=== PATIENT | male | born 1985 | race Two or more races ===

== ENCOUNTER 2021-01-17 12:35 | Emergency (ER) | payer SELFPAY ==
[~2021-01-17] VITALS: Ht 175.3 cm; Wt 110.0 kg
[~2021-01-17 12:35] MED LIST: CEPH500C PO; HYDR-2761 PO
[2021-01-17 13:13] VITALS: BP 153/101
[2021-01-17] MEDS ORDERED: NAPR-514 PO (14:02)
[2021-01-17] MEDS ORDERED: CLIN-94 PO (14:02)
--- NOTE | 2021-01-17 14:02 | PHYS DOC ---
Past Medical History Past Surgical History: No Surgical History Smoking Status: Never Smoker General Adult EDM: Chief Complaint: DENTAL PROBLEM HPI: HPI: Patient is a 35 year old male patient presented today complaining of 7 out of 10 left upper gum dental pain, symptoms began yesterday. Also complaining of left facial swelling. Patient denies any fever or trismus. He states he is currently at [facility] for drug rehab. Patient describes the pain as sharp and intermittent worse on eating certain foods. Review of Systems: Review of Systems: Constitutional: Denies fever or chills. [] HENT: Reports left upper gum dental pain denies nasal congestion or sore throat. [] Musculoskeletal: Denies back pain or joint pain. [] Integument: Denies rash. [] Neurologic: Denies headache, focal weakness or sensory changes. [] Psychiatric: Denies depression or anxiety. [] Heart Score: C/O Chest Pain: N/A Risk Factors: Risk Factors: DM, Current or recent (<one month) smoker, HTN, HLP, family history of CAD, obesity. Risk Scores: Score 0 - 3: 2.5% MACE over next 6 weeks - Discharge Home Score 4 - 6: 20.3% MACE over next 6 weeks - Admit for Clinical Observation Score 7 - 10: 72.7% MACE over next 6 weeks - Early Invasive Strategies Allergies: Allergies: Allergies Coded Allergies Type Severity Reaction Last Updated Verified Penicillins Allergy Intermediate 01/17/21 Yes Physical Exam: PE: Constitutional: Well developed, well nourished, no acute distress, non-toxic appearance. [] HENT: Normocephalic, atraumatic, bilateral external ears normal, oropharynx moist, no oral exudates, nose normal. [] Left upper cheek noted for slight swelling, very poor dentition, left upper gum with multiple missing teeth specifically molars. There is one molar left that has surrounding erythema, nothing drainable. Skin: Warm, dry, no erythema, no rash. [] Back: No tenderness, no CVA tenderness. [] Extremities: No tenderness, no cyanosis, no clubbing, ROM intact, no edema. [] Neurologic: Alert and oriented X 3, normal motor function, normal sensory function, no focal deficits noted. [] Psychologic: Affect normal, judgement normal, mood normal. [] Current Patient Data: Vital Signs: Vital Signs Date Time Temp Pulse Resp B/P (MAP) Pulse Ox O2 Delivery O2 Flow Rate FiO2 01/17/21 13:13 98.5 90 17 153/101 (118) 100 98.5 EKG: EKG: [] Radiology/Procedures: Radiology/Procedures: [] Course & Med Decision Making: Course & Med Decision Making Pertinent Labs and Imaging studies reviewed. (See chart for details) This a 35-year-old male patient at [facility] presenting today for dental pain. Patient has very poor dentition discharged on clindamycin and naproxen. Follow-up with dentist Silas Disclaimer: Silas Disclaimer: This electronic medical record was generated, in whole or in part, using a voice recognition dictation system. Departure Departure Impression: Primary Impression: Dentalgia Additional Impression: Dental abscess Disposition: HOME / SELF CARE / HOMELESS Condition: STABLE Referrals: NO PCP (PCP) follow up with your dentist in one week Patient Instructions: Dental Abscess Additional Instructions: You were seen for dental pain. Please take the prescribed antibiotics until completed. Follow-up with the dentist of your dentist Scripts Naproxen (NAPROXEN) 500 Mg Tablet 1 TAB PO BID for pain, #20 TAB 0 Refills Prov: STEFFANIE MACEDO APRN 01/17/21 Clindamycin Hcl (CLINDAMYCIN HCL) 300 Mg Capsule 1 CAP PO TID, #21 CAP Prov: STEFFANIE MACEDO APRN 01/17/21 STEFFANIE MACEDO APRN Jan 17, 2021 14:02
== END 2021-01-17 14:05 | disposition home or self-care (01) ==
LOC: ER 12:35
DX: K04.7 Periapical abscess without sinus (principal); Z88.0 Allergy status to penicillin
CPT/HCPCS: 99283